=== PATIENT | male | born 1945 | race Caucasian/White ===

== ENCOUNTER 2019-12-22 16:28 | Observation (INO) | payer MEDICARE, OTHER ==
[~2019-12-22] VITALS: Ht 175.3 cm; Wt 142.3 kg
--- NOTE | 2019-12-22 16:44 | NUR ---
THIS IS A 74 YO MALE BIB [facility] FROM [facility] FOR WHOLE BODY WEAKNESS, STATES "IF I DIDN'T HAVE SOMETHING TO LEAN ON TO ASSIST ME TO THE GROUND, I WOULD HAVE FALLEN". SAME EPISODE OCCURED EARLIER THIS MORNING, RESOLVED WITH REST. A&OX4, DENIES CP/SOB. DENIES DIZZINESS OR LIGHTHEADED, HX OF VERTIGO IN THE PAST, STATES "IT FELT DIFFERENT THAN THE VERTIGO, I WASN'T DIZZY". ALL MONITORING IN PLACE, HX OF AFIB DOES NOT TAKE BLOOD THINNERS OTHER THAN ASPRIN. VSS, NADN AT THIS TIME. ERP IN ROOM FOR JOSE DAVID
[2019-12-22 17:26] LABS: BASOPHILS # (AUTO) 0.04 x10^3/uL (0-0.1); BASOPHILS % (AUTO) 1 % (0-1); EOSINOPHILS # (AUTO) 0.08 x10^3/uL (0-0.4); EOSINOPHILS % (AUTO) 1 % (1-7); LYMPHOCYTES # (AUTO) 0.93 x10^3/uL (1-3.4); LYMPHOCYTES % (AUTO) 15 % (22-44); MD NO; MEAN CORPUSCULAR HEMOGLOBIN 28.8 pg (27.5-34.5); MEAN CORPUSCULAR HGB CONC 33.6 g/dL (33.2-36.2); MEAN CORPUSCULAR VOLUME 85.6 fL (81-97); MONOCYTES # (AUTO) 0.29 x10^3/uL (0.2-0.8); MONOCYTES % (AUTO) 5 % (2-9); NEUTROPHILS # (AUTO) 4.88 x10^3/uL (1.8-6.8); NEUTROPHILS % (AUTO) 79 % (42-75); PLATELET COUNT 136 x10^3/uL (130-400)
[2019-12-22 17:39] LABS: ALANINE AMINOTRANSFERASE 35 U/L (12-78); ALBUMIN 3.2 g/dL (3.4-5.0); ANION GAP 7 mmol/L (5-15); CALCIUM 9.5 mg/dL (8.5-10.1); CHLORIDE 108 mmol/L (98-107)
[2019-12-22 17:49] LABS: ALKALINE PHOSPHATASE 145 U/L (45-117); BILIRUBIN,TOTAL 1.4 mg/dL (0.2-1.0); TOTAL PROTEIN 6.9 g/dL (6.4-8.2)
[2019-12-22 18:01] LABS: FREE T4 (FREE THYROXINE) 1.24 ng/dL (0.76-1.46)
--- NOTE | 2019-12-22 18:13 | NUR ---
PATIENT RESTING IN GURNEY, RESPIRATIONS EVEN AND UNLABORED, PATIENT IS HYPERTENSIVE, ALL OTHER VS WNL, CALL LIGHT IN REACH, MONITORING IN PLACE
--- NOTE | 2019-12-22 18:30 | NUR ---
ALL RESULTS BACK AT THIS TIME, CHART UP FOR RECHECK.
--- NOTE | 2019-12-22 19:54 | NUR ---
ADMITTING PA TO ROOM
--- NOTE | 2019-12-22 20:22 | NUR ---
REPORT GIVEN TO HIPOLITO SWANSON. PLAN OF CARE DISCUSSED. HIPOLITO SWANSON AWARE OF HTN
[2019-12-22 20:23] LABS: TROPONIN I < 0.015 ng/mL (0.000-0.045)
[2019-12-22] MEDS ORDERED: BISACODYL 10 MG SUPP PR PRN (20:30)
[2019-12-22] MEDS ORDERED: ONDANSETRON ODT 4 MG PO PRN (20:30)
[2019-12-22] MEDS ORDERED: ACETAMINOPHEN 325 MG TABLET PO PRN (20:30)
[2019-12-22] MEDS ORDERED: POLYETHYLENE GLYCOL 17 GM PACKET PO PRN (20:30)
--- NOTE | 2019-12-22 20:31 | NUR ---
PATIENT IN ULTRASOUND THEN TO BE TRANSPORTED UPSTAIRS
[2019-12-22] MEDS: SODIUM CHLORIDE FLUSH 10ML SYR IVF SCH (21:00)
[2019-12-22 21:21] VITALS: BP 168/122
[2019-12-22 21:27] VITALS: BP 161/114
[2019-12-22 21:28] VITALS: BP 162/110
[2019-12-22] MEDS: hydrALAzine 20 MG/ML, 1ML IVPush PRN (21:33)
[2019-12-22 23:00] VITALS: BP 162/98
[2019-12-23] VITALS (9 sets, daily range): BP systolic 134–178; BP diastolic 75–124
[2019-12-23] MEDS: hydrALAzine 20 MG/ML, 1ML IVPush PRN (01:47)
[2019-12-23 05:44] LABS: BASOPHILS # (AUTO) 0.03 x10^3/uL (0-0.1); BASOPHILS % (AUTO) 1 % (0-1); EOSINOPHILS # (AUTO) 0.06 x10^3/uL (0-0.4); EOSINOPHILS % (AUTO) 1 % (1-7); LYMPHOCYTES # (AUTO) 0.97 x10^3/uL (1-3.4); LYMPHOCYTES % (AUTO) 13 % (22-44); MD NO; MEAN CORPUSCULAR HEMOGLOBIN 28.7 pg (27.5-34.5); MEAN CORPUSCULAR HGB CONC 33.4 g/dL (33.2-36.2); MEAN CORPUSCULAR VOLUME 85.9 fL (81-97); MEAN PLATELET VOLUME 9.8 fL (7.4-10.4); MONOCYTES # (AUTO) 0.51 x10^3/uL (0.2-0.8); MONOCYTES % (AUTO) 7 % (2-9); NEUTROPHILS # (AUTO) 5.82 x10^3/uL (1.8-6.8); NEUTROPHILS % (AUTO) 79 % (42-75); PLATELET COUNT 156 x10^3/uL (130-400); RED BLOOD COUNT 5.54 x10^6/uL (4.38-5.82); RED CELL DISTRIBUTION WIDTH 13.9 % (9.4-14.8)
[2019-12-23 05:53] LABS: CHLORIDE 110 mmol/L (98-107)
[2019-12-23 06:02] LABS: ANION GAP 9 mmol/L (5-15); CALCIUM 9.4 mg/dL (8.5-10.1); CHOL/HDL RATIO 2.7; CHOLESTEROL, TOTAL 107 mg/dL (140-239); CREATININE 1.03 mg/dL (0.7-1.3); HDL CHOL % 37 % (26-37); HDL CHOLESTEROL (DIRECT) 40 mg/dL (40-60); LDL CHOLESTEROL,CALCULATED 55 mg/dL (54-169); LDL/HDL RATIO 1.4 (0.5-3.0); TRIGLYCERIDES 62 mg/dL (50-200); TROPONIN I < 0.015 ng/mL (0.000-0.045); VLDL CHOLESTEROL 12 mg/dL (0-25)
[2019-12-23] MEDS: SODIUM CHLORIDE FLUSH 10ML SYR IVF SCH ×2 (08:21→20:04)
[2019-12-23] MEDS: SENNA/DOCUSATE TABLET PO SCH (08:21)
[2019-12-23] MEDS ORDERED: SODIUM CHLORIDE 0.9% 1,000 ML IV SCH ×2 (11:00)
[2019-12-23 11:30] LABS: TROPONIN I < 0.015 ng/mL (0.000-0.045)
[2019-12-23] MEDS: LISINOPRIL 10 MG TABLET PO SCH (20:04)
[2019-12-23 22:55] LABS: MICROSCOPIC INDICATED
[2019-12-24] VITALS (11 sets, daily range): BP systolic 130–154; BP diastolic 80–97
[2019-12-24 05:30] LABS: CHLORIDE 111 mmol/L (98-107)
[2019-12-24 05:44] LABS: ALANINE AMINOTRANSFERASE 29 U/L (12-78); ALBUMIN 2.9 g/dL (3.4-5.0); ALKALINE PHOSPHATASE 123 U/L (45-117); ANION GAP 7 mmol/L (5-15); BILIRUBIN,TOTAL 1.4 mg/dL (0.2-1.0); CALCIUM 9.2 mg/dL (8.5-10.1); CREATININE 1.14 mg/dL (0.7-1.3); TOTAL PROTEIN 6.2 g/dL (6.4-8.2)
[2019-12-24] MEDS: SODIUM CHLORIDE FLUSH 10ML SYR IVF SCH (08:32)
[2019-12-24] MEDS: SENNA/DOCUSATE TABLET PO SCH (08:32)
[2019-12-24] MEDS: LISINOPRIL 10 MG TABLET PO SCH (08:32)
[2019-12-24] MEDS ORDERED: LISI-167 PO (11:22)
== END 2019-12-24 13:55 | disposition home or self-care (01) ==
LOC: ED 17:28 → INTOOBSV 19:20 → EDIP 19:20 → 4EST 20:56
PROVIDERS: ADMIT Internal Medicine; ATTEND Internal Medicine
DX: R55 Syncope and collapse (principal); R42 Dizziness and giddiness; R53.1 Weakness; I10 Essential (primary) hypertension; I08.3 Combined rheumatic disorders of mitral, aortic and tricuspid valves; J32.0 Chronic maxillary sinusitis; E66.9 Obesity, unspecified; Z79.899 Other long term (current) drug therapy
CPT/HCPCS: 36415; 70450; 71045; 80048; 80053; 80061; 81001; 84439; 84443; 84484; 85025; 93005; 93306; 93880; 96361; 96374; 96376; 97161; 99285; G0378; J0360; J7030

== ENCOUNTER 2021-03-30 10:26 | Outpatient (CLI) | payer MEDICARE ==
[~2021-03-30 10:26] MED LIST: ACID1TAB7 PO; AMLO-210 PO; CEFD300C37 PO; LISI-167 PO; LISI30TA4 PO; MAGN400T50 PO; METR500T PO
== END 2021-03-30 23:59 | disposition home or self-care (01) ==
LOC: RAD 10:26
PROVIDERS: ATTEND Family Medicine
DX: J18.9 Pneumonia, unspecified organism (principal)
CPT/HCPCS: 71046